=== PATIENT | female | born 1945 | race Caucasian/White ===

== ENCOUNTER 2017-09-15 14:41 | Emergency (ER) | payer OTHER ==
[~2017-09-15] VITALS: Ht 162.6 cm; Wt 111.7 kg
[2017-09-15 14:41] VITALS: TEMP 36.8; Ht 162.6 cm; Wt 111.7 kg
[2017-09-15] MEDS ORDERED: ONDANSETRON INJ 2 MG/ML 2 ML VIAL IV STA (14:57)
--- NOTE | 2017-09-15 14:59 | EMERGENCY ROOM VISIT NOTE ---
History Report prepared by Samantha: Saul Barone Under the Supervision of: Dr. Huseyin Gerardo M.D. First contact with patient: 14:52 Stated Complaint: FALL History of Present Illness The patient is a 72 year old female who presents to the Emergency Room via EMS with complaints of a sudden mechanical fall that occurred around an hour and a half ago. She states that she fell backward off of a step stool, and fell to the ground. The patient notes that she has had persistent left knee and leg pain ever since the fall. She says that she was on ground "for a while" until she could pull herself onto her bed. The patient adds that she was unable to walk on the leg. She states that she felt like she twisted the leg, and perhaps fractured it. The patient says that she did not hit her head on the fall. The patient notes that she takes a baby Aspirin but no other blood thinners. Source of History: patient, nursing staff Onset: An hour and a half ago Position: other (global) Symptom Intensity: cannot walk since fall Quality: other (fall - mechanical) Timing: other (sudden) Note: Associated symptoms: Left leg and knee pain. Did not hit head on fall. Review of Systems See HPI for pertinent positives & negatives. A total of 10 systems reviewed and were otherwise negative. Past Medical & Surgical Medical Problems: (1) Diabetes Family History Cancer Diabetes mellitus Heart disease Social History Smoking Status: Former Smoker Alcohol Use: none Current/Historical Medications Scheduled Aspirin (Aspirin Ec), 81 MG PO DAILY Escitalopram Oxalate (Lexapro), 20 MG PO DAILY Metformin Hcl (Glucophage), 500 MG PO BID Phenytoin Sodium (Dilantin), 500 MG PO DAILY@1700 Simvastatin (Zocor), 10 MG PO QPM Allergies Coded Allergies: No Known Allergies (Unverified , 09/15/17) Physical Exam Vital Signs Date Time Temp Pulse Resp B/P (MAP) Pulse Ox O2 Delivery O2 Flow Rate FiO2 09/15/17 19:51 79 18 108/56 99 Nasal Cannula 2.0 09/15/17 18:36 97 Nasal Cannula 2.0 09/15/17 18:32 63 18 99/57 97 Nasal Cannula 2.0 09/15/17 17:05 75 18 123/57 96 Room Air 09/15/17 15:44 70 20 129/61 95 Room Air 09/15/17 14:41 36.8 81 24 149/72 98 Room Air Physical Exam GENERAL: Awake, alert, well-appearing, in no acute distress HENT: Normocephalic, atraumatic. Oropharynx unremarkable. EYES: Normal conjunctiva. Sclera non-icteric. NECK: Supple. No nuchal rigidity. FROM. No JVD. RESPIRATORY: Clear to auscultation. CARDIAC: Regular rate, normal rhythm. Extremities warm and well perfused. Pulses equal. ABDOMEN: Soft, non-distended. No tenderness to palpation. No rebound or guarding. No masses. RECTAL: Deferred. MUSCULOSKELETAL: Tender to the left hip. Chest examination reveals no tenderness. The back is symmetrical on inspection without obvious abnormality. There is no CVA tenderness to palpation. LOWER EXTREMITIES: Cannot bend the left knee. Neurovascularly intact at the foot. Calves are equal size bilaterally and non-tender. No discoloration. NEURO: Normal sensorium. SKIN: No rash or jaundice noted. Medical Decision & Procedures ER Provider Diagnostic Interpretation: Radiology results as stated below per my review and radiologist interpretation: L FEMUR 2 VIEWS ROUTINE, L TIBIA/FIBULA 2 VIEWS ROUTINE HISTORY: 72 years-old Female Pt c/o left hip pain acute left leg pain COMPARISON: None available TECHNIQUE: 2 views of the left femur with 2 views of the left tibia and fibula FINDINGS: FEMUR: The bones appear mildly demineralized. Moderate degenerative changes about the left femoral acetabular joint. The imaged left hemipelvis appears intact. The distal femur also appears intact without acute fracture identified. Moderate marginal spurring about the distal femur with moderate degenerative changes of the patellofemoral joint. Moderate sized knee joint effusion. Peripheral vascular disease. TIBIA/FIBULA: The bones appear mildly demineralized. There is an acute comminuted fracture involving the lateral tibial plateau with cortical depression of at least 9 mm and lateral displacement of 5 mm. There are additional suspected acute fracture extending into the medial and lateral tibial spines. Acute mildly impacted fracture of the proximal metaphyseal fibula seen best on the crosstable lateral view. Moderate soft tissue swelling about the knee. The distal tibia and fibula appear intact. Vascular calcifications are noted about the lower leg. IMPRESSION: 1. Acute comminuted fracture of the lateral tibial plateau with cortical depression and mild displacement. 2. Additional suspected acute fractures involve the medial and lateral tibial spines. 3. Acute mildly impacted fracture of the proximal metaphyseal fibula. 4. Osteopenic appearance of the bones. The above report was generated using voice recognition software. It may contain grammatical, syntax or spelling errors. Electronically signed by: Tom Olivas M.D. 09/15/2017 4:43 PM Dictated Date/Time: 09/15/2017 4:38 PM PELVIS 1 OR 2 VIEW ROUTINE HISTORY: 72 years-old Female Pt c/o left hip pain acute left-sided head pain with acute left tibial fracture. Status post fall. COMPARISON: Left femur and left tibia/fibula radiographs of same day TECHNIQUE: Single AP view of the pelvis FINDINGS: The bones appear mildly demineralized. Moderate general changes about the pubic symphysis and bilateral femoral acetabular joints. There is no acute fracture or dislocation. Sacrum appears intact. IMPRESSION: No acute fracture or dislocation. The above report was generated using voice recognition software. It may contain grammatical, syntax or spelling errors. Electronically signed by: Tom Olivas M.D. 09/15/2017 4:47 PM Dictated Date/Time: 09/15/2017 4:46 PM L FEMUR 2 VIEWS ROUTINE, L TIBIA/FIBULA 2 VIEWS ROUTINE HISTORY: 72 years-old Female Pt c/o left hip pain acute left leg pain COMPARISON: None available TECHNIQUE: 2 views of the left femur with 2 views of the left tibia and fibula FINDINGS: FEMUR: The bones appear mildly demineralized. Moderate degenerative changes about the left femoral acetabular joint. The imaged left hemipelvis appears intact. The distal femur also appears intact without acute fracture identified. Moderate marginal spurring about the distal femur with moderate degenerative changes of the patellofemoral joint. Moderate sized knee joint effusion. Peripheral vascular disease. TIBIA/FIBULA: The bones appear mildly demineralized. There is an acute comminuted fracture involving the lateral tibial plateau with cortical depression of at least 9 mm and lateral displacement of 5 mm. There are additional suspected acute fracture extending into the medial and lateral tibial spines. Acute mildly impacted fracture of the proximal metaphyseal fibula seen best on the crosstable lateral view. Moderate soft tissue swelling about the knee. The distal tibia and fibula appear intact. Vascular calcifications are noted about the lower leg. IMPRESSION: 1. Acute comminuted fracture of the lateral tibial plateau with cortical depression and mild displacement. 2. Additional suspected acute fractures involve the medial and lateral tibial spines. 3. Acute mildly impacted fracture of the proximal metaphyseal fibula. 4. Osteopenic appearance of the bones. The above report was generated using voice recognition software. It may contain grammatical, syntax or spelling errors. Electronically signed by: Tom Olivas M.D. 09/15/2017 4:43 PM Dictated Date/Time: 09/15/2017 4:38 PM CHEST ONE VIEW PORTABLE HISTORY: 72 years-old Female Pt c/o left hip pain acute left-sided head pain. Acute chest trauma status post fall COMPARISON: Shoulder radiographs 08/07/2009 TECHNIQUE: Portable AP view of the chest FINDINGS: Cardiac silhouette is upper limits of normal in size. There is no pneumothorax, pleural effusion, focal airspace consolidation or overt pulmonary edema. The bones of the chest appear grossly intact. Cholecystectomy clips noted. IMPRESSION: No acute process. The above report was generated using voice recognition software. It may contain grammatical, syntax or spelling errors. Electronically signed by: Tom Olivas M.D. 09/15/2017 4:51 PM Dictated Date/Time: 09/15/2017 4:[address] HEAD WITHOUT CONTRAST (CT) CLINICAL HISTORY: Severe headache. Neck pain. Trauma. COMPARISON STUDY: No previous studies for comparison. TECHNIQUE: Axial CT of the brain is performed from the vertex to the skull base. IV contrast was not administered for this examination. A dose lowering technique was utilized adhering to the principles of ALARA. CT DOSE: 1017.36 mGy.cm FINDINGS: No intra or extra-axial mass lesions are visualized. There is no CT evidence of acute cortical infarction. There is no evidence of midline shift. There is no acute hemorrhage. No calvarial fractures are visualized. There are patchy white matter hypodensities likely on a small vessel basis. There is no evidence of pathologic ventricular dilatation. There is no evidence of acute sinusitis IMPRESSION: No acute intracranial findings Electronically signed by: Davide De Jesus M.D. 09/15/2017 4:53 PM Dictated Date/Time: 09/15/2017 4:[address] OF THE CERVICAL SPINE CLINICAL HISTORY: Neck pain status post trauma COMPARISON STUDY: No previous studies for comparison. CT DOSE: TECHNIQUE: CT scan of the cervical spine was performed from the skull base to the thoracic inlet. Images are reviewed in the axial, sagittal, and coronal planes. IV contrast was not administered for this examination. A dose lowering technique was utilized adhering to the principles of ALARA. FINDINGS: The visualized portions of the lung apices reveal no evidence of pneumothorax. There are bilateral mastoid effusions left greater than right. There is a small amount of fluid within the left middle ear cavity. The prevertebral soft tissues are normal. No fractures or subluxations are visualized. There are multilevel degenerative changes, most pronounced at the C5-6 level. IMPRESSION: 1. No evidence of acute fracture or traumatic subluxation 2. Bilateral mastoid effusions left greater than right. Electronically signed by: Davide De Jesus M.D. 09/15/2017 4:57 PM Dictated Date/Time: 09/15/2017 4:[address] LEFT LOWER EXTREMITY NO CONTRAST CT DOSE: 684.15 mGy.cm CLINICAL HISTORY: Left hip and tibial plateau fractures. TECHNIQUE: Helical images were acquired in the transverse plane. Sagittal and coronal reformatted imaging was performed. A dose lowering technique was utilized adhering to the principles of ALARA. COMPARISON STUDY: Conventional radiographic images performed September 15, 2017 FINDINGS: No acute fractures of the femur are visualized. There are osteoarthritic changes present the level of the hip. There is a comminuted tibial plateau fracture involving the lateral tibial plateau. The fracture extends through the inferior aspect the tibial spines to involve the lateral aspect of the medial tibial plateau. Laterally there is 2 cm of maximal depression. There is associated fracture of the proximal fibula. There are osteoarthritic changes present within the knee. IMPRESSION: 1. No evidence of acute femoral fracture 2. Comminuted tibial plateau fracture involving both the medial and lateral tibial plateaus. There is 2 cm of maximal depression laterally. There is associated fracture of the proximal fibula. Electronically signed by: Davide De Jesus M.D. 09/15/2017 5:08 PM Dictated Date/Time: 09/15/2017 5:02 PM Laboratory Results 09/15/17 15:35 Red Blood Count 4.07, Mean Corpuscular Volume 88.0, Mean Corpuscular Hemoglobin 30.0, Mean Corpuscular Hemoglobin Concent 34.1, Mean Platelet Volume 9.0, Neutrophils (%) (Auto) 80.1, Lymphocytes (%) (Auto) 11.9, Monocytes (%) (Auto) 5.9, Eosinophils (%) (Auto) 1.3, Basophils (%) (Auto) 0.4, Neutrophils # (Auto) 9.50, Lymphocytes # (Auto) 1.41, Monocytes # (Auto) 0.70, Eosinophils # (Auto) 0.16, Basophils # (Auto) 0.05 09/15/17 15:35 Test 09/15/17 15:35 09/15/17 15:57 09/15/17 18:25 White Blood Count 11.87 K/uL (4.8-10.8) Red Blood Count 4.07 M/uL (4.2-5.4) Hemoglobin 12.2 g/dL (12.0-16.0) Hematocrit 35.8 % (37-47) Mean Corpuscular Volume 88.0 fL (80-100) Mean Corpuscular Hemoglobin 30.0 pg (25-34) Mean Corpuscular Hemoglobin Concent 34.1 g/dl (32-36) Platelet Count 235 K/uL (130-400) Mean Platelet Volume 9.0 fL (7.4-10.4) Neutrophils (%) (Auto) 80.1 % Lymphocytes (%) (Auto) 11.9 % Monocytes (%) (Auto) 5.9 % Eosinophils (%) (Auto) 1.3 % Basophils (%) (Auto) 0.4 % Neutrophils # (Auto) 9.50 K/uL (1.4-6.5) Lymphocytes # (Auto) 1.41 K/uL (1.2-3.4) Monocytes # (Auto) 0.70 K/uL (0.11-0.59) Eosinophils # (Auto) 0.16 K/uL (0-0.5) Basophils # (Auto) 0.05 K/uL (0-0.2) RDW Standard Deviation 44.8 fL (36.4-46.3) RDW Coefficient of Variation 13.9 % (11.5-14.5) Immature Granulocyte % (Auto) 0.4 % Immature Granulocyte # (Auto) 0.05 K/uL (0.00-0.02) Prothrombin Time 9.9 SECONDS (9.0-12.0) Prothromb Time International Ratio 0.9 (0.9-1.1) Activated Partial Thromboplast Time 23.4 SECONDS (21.0-31.0) Partial Thromboplastin Ratio 0.9 Anion Gap 5.0 mmol/L (3-11) Est Creatinine Clear Calc Drug Dose 68.4 ml/min Estimated GFR () 73.1 Estimated GFR (Non- 63.0 BUN/Creatinine Ratio 17.8 (10-20) Calcium Level 8.6 mg/dl (8.5-10.1) Urine Color YELLOW Urine Appearance CLEAR (CLEAR) Urine pH 5.5 (4.5-7.5) Urine Specific [place] 1.015 (1.000-1.030) Urine Protein NEG (NEG) Urine Glucose (UA) NEG (NEG) Urine Ketones NEG (NEG) Urine Occult Blood NEG (NEG) Urine Nitrite NEG (NEG) Urine Bilirubin NEG (NEG) Urine Urobilinogen NEG (NEG) Urine Leukocyte Esterase NEG (NEG) Phenytoin (Dilantin) Level 11.2 mcg/mL (10-20) Labs reviewed by ED physician. Medications Administered Medications (Trade) Dose Ordered Sig/Karime Route Start Time Stop Time Status Last Admin Dose Admin Hydromorphone HCl (Dilaudid Inj) 0.5 mg Q20M PRN IV 09/15/17 15:00 09/29/17 14:59 09/15/17 15:35 0.5 MG Ondansetron HCl (Zofran Inj) 4 mg NOW STAT IV 09/15/17 14:57 09/15/17 15:10 DC 09/15/17 15:35 4 MG Hydromorphone HCl (Dilaudid Inj) 0.5 mg NOW STAT IV 09/15/17 16:56 09/15/17 16:57 DC 09/15/17 17:01 0.5 MG Hydromorphone HCl (Dilaudid Inj) 0.5 mg NOW STAT IV 09/15/17 17:54 09/15/17 17:55 DC 09/15/17 18:31 0.5 MG Phenytoin Sodium (Dilantin Er Cap) 500 mg NOW STAT PO 09/15/17 18:17 09/15/17 18:19 DC 09/15/17 18:32 500 MG ECG Per My Interpretation Indication: other (trauma) Rate (beats per minute): 69 Rhythm: normal sinus Findings: other (no ST elevation or depression) ED Course 1453: Past medical records reviewed. The patient was evaluated in room C6. A complete history and physical examination was performed. 1457: Zofran Inj 4 mg IV. 1500: Dilaudid Inj 0.5 mg IV PRN. 1518: I reevaluated the patient and she is doing better. 1601: I reevaluated and updated the patient. 1640: I reevaluated the patient and updated her family. 1655: I reevaluated the patient and she wants more pain medication. 1656: Dilaudid Inj 0.5 mg IV. 1711: I discussed the patient with Dr. Zaragoza of orthopedics - he says that the patient needs to be transferred to a trauma center. 1721: I reevaluated the patient and updated her. She is resting. I told the patient that she needs to be transferred to a trauma center. She is agreeable with this plan. 1730: I discussed the patient with Dr. Fontanez - [facility] ED - he has accepted the patient in transfer. Medical Decision Differential diagnosis: Etiologies such as fracture, dislocation, neurovascular compromise, compartment syndrome, soft tissue injury, as well as others were entertained. This is a 72-year-old female who presents emergency department complaining of leg pain after a fall. The patient is unable to move her left leg due to the pain. Ice packs were placed on the patient's knee and she was sent for x-rays along with a CAT scan of the head and C-spine. While in x-ray there is concern that the patient had a hip fracture as well as a tibial plateau fracture therefore a CT of the lower extremity was added. The patient received an IV was given Dilaudid along with a normal saline bolus. She was given her normal seizure medication which she normally takes at 5:00. She was also given Zofran. The patient's CAT scan is concerning for a 2 cm tibial plateau fracture. I did discuss the case with Dr. Zaragoza the on-call orthopedic surgeon who felt that the patient will be better served at the trauma center. I did discuss this with the patient's family. The patient has a [facility] doctor and would like to go to [place]. I did discuss the case with the emergency department who readily accepted the patient. Patient and family were in agreement with the treatment plan. Medication Reconcilliation Current Medication List: was personally reviewed by me Blood Pressure Screening Patient's blood pressure: Elevated blood pressure Blood pressure disposition: Elevated BP felt to be situational Consults Time Called: 1707 Consulting Physician: Dr. Zaragoza of orthopedics Returned Call: 1711 I discussed the patient with Dr. Zaragoza of orthopedics - he says that the patient needs to be transferred to a trauma center. Additional Consults: Time Called: 1720 Consulted Physician: Dr. Huseyin Hackett [facility] ED Returned Call: 1730 Additional Comments: I discussed the patient with Dr. Fontanez - [facility] [place] [facility] - he has accepted the patient in transfer. Impression Primary Impression: Fall Additional Impression: Tibial plateau fracture Scribe Attestation The scribe's documentation has been prepared under my direction and personally reviewed by me in its entirety. I confirm that the note above accurately reflects all work, treatment, procedures, and medical decision making performed by me. Departure Information Dispostion Transfer Acute Care Facility (to [facility]) Referrals Svetlana Brown D.O. (PCP) Problem Qualifiers Primary Impression: Fall Encounter type: initial encounter Qualified Codes: W19.XXXA - Unspecified fall, initial encounter Additional Impression: Tibial plateau fracture Encounter type: initial encounter Fracture type: closed Laterality: left Qualified Codes: S82.142A - Displaced bicondylar fracture of left tibia, initial encounter for closed fracture
[2017-09-15] MEDS ORDERED: HYDROmorphone INJ 0.5 MG/0.5 ML SYR IV PRN (15:00)
[2017-09-15 15:44] LABS: BASO % 0.4 %; BASO ABS # 0.05 K/uL (0-0.2); EOS % 1.3 %; EOS ABS # 0.16 K/uL (0-0.5); HEMATOCRIT 35.8 % (37-47); HEMOGLOBIN 12.2 g/dL (12.0-16.0); IG# 0.05 K/uL (0.00-0.02); LYMPH % 11.9 %; LYMPH ABS # 1.41 K/uL (1.2-3.4); MEAN CORPUSCULAR HGB CONC 34.1 g/dl (32-36); MONO % 5.9 %; NEUT % 80.1 %; PLATELET COUNT 235 K/uL (130-400); RED CELL DISTRIBUTION WIDTH CV 13.9 % (11.5-14.5); RED CELL DISTRIBUTION WIDTH SD 44.8 fL (36.4-46.3); WHITE BLOOD COUNT 11.87 K/uL (4.8-10.8)
[2017-09-15 15:52] LABS: INR 0.9 (0.9-1.1); PTT PATIENT 23.4 SECONDS (21.0-31.0)
[2017-09-15 16:01] LABS: CALCIUM 8.6 mg/dl (8.5-10.1); CREATININE 0.91 mg/dl (0.60-1.20); POTASSIUM 3.7 mmol/L (3.5-5.1)
--- NOTE | 2017-09-15 16:44 | DIAGNOSTIC IMAGING REPORT ---
L FEMUR 2 VIEWS ROUTINE, L TIBIA/FIBULA 2 VIEWS ROUTINE HISTORY: 72 years-old Female Pt c/o left hip pain acute left leg pain COMPARISON: None available TECHNIQUE: 2 views of the left femur with 2 views of the left tibia and fibula FINDINGS: FEMUR: The bones appear mildly demineralized. Moderate degenerative changes about the left femoral acetabular joint. The imaged left hemipelvis appears intact. The distal femur also appears intact without acute fracture identified. Moderate marginal spurring about the distal femur with moderate degenerative changes of the patellofemoral joint. Moderate sized knee joint effusion. Peripheral vascular disease. TIBIA/FIBULA: The bones appear mildly demineralized. There is an acute comminuted fracture involving the lateral tibial plateau with cortical depression of at least 9 mm and lateral displacement of 5 mm. There are additional suspected acute fracture extending into the medial and lateral tibial spines. Acute mildly impacted fracture of the proximal metaphyseal fibula seen best on the crosstable lateral view. Moderate soft tissue swelling about the knee. The distal tibia and fibula appear intact. Vascular calcifications are noted about the lower leg. IMPRESSION: 1. Acute comminuted fracture of the lateral tibial plateau with cortical depression and mild displacement. 2. Additional suspected acute fractures involve the medial and lateral tibial spines. 3. Acute mildly impacted fracture of the proximal metaphyseal fibula. 4. Osteopenic appearance of the bones. The above report was generated using voice recognition software. It may contain grammatical, syntax or spelling errors. Electronically signed by: Tom Olivas M.D. 09/15/2017 4:43 PM Dictated Date/Time: 09/15/2017 4:38 PM
--- NOTE | 2017-09-15 16:48 | DIAGNOSTIC IMAGING REPORT ---
PELVIS 1 OR 2 VIEW ROUTINE HISTORY: 72 years-old Female Pt c/o left hip pain acute left-sided head pain with acute left tibial fracture. Status post fall. COMPARISON: Left femur and left tibia/fibula radiographs of same day TECHNIQUE: Single AP view of the pelvis FINDINGS: The bones appear mildly demineralized. Moderate general changes about the pubic symphysis and bilateral femoral acetabular joints. There is no acute fracture or dislocation. Sacrum appears intact. IMPRESSION: No acute fracture or dislocation. The above report was generated using voice recognition software. It may contain grammatical, syntax or spelling errors. Electronically signed by: Tom Olivas M.D. 09/15/2017 4:47 PM Dictated Date/Time: 09/15/2017 4:46 PM
--- NOTE | 2017-09-15 16:52 | DIAGNOSTIC IMAGING REPORT ---
CHEST ONE VIEW PORTABLE HISTORY: 72 years-old Female Pt c/o left hip pain acute left-sided head pain. Acute chest trauma status post fall COMPARISON: Shoulder radiographs 08/07/2009 TECHNIQUE: Portable AP view of the chest FINDINGS: Cardiac silhouette is upper limits of normal in size. There is no pneumothorax, pleural effusion, focal airspace consolidation or overt pulmonary edema. The bones of the chest appear grossly intact. Cholecystectomy clips noted. IMPRESSION: No acute process. The above report was generated using voice recognition software. It may contain grammatical, syntax or spelling errors. Electronically signed by: Tom Olivas M.D. 09/15/2017 4:51 PM Dictated Date/Time: 09/15/2017 4:48 PM
--- NOTE | 2017-09-15 16:54 | DIAGNOSTIC IMAGING REPORT ---
CT HEAD WITHOUT CONTRAST (CT) CLINICAL HISTORY: Severe headache. Neck pain. Trauma. COMPARISON STUDY: No previous studies for comparison. TECHNIQUE: Axial CT of the brain is performed from the vertex to the skull base. IV contrast was not administered for this examination. A dose lowering technique was utilized adhering to the principles of ALARA. CT DOSE: 1017.36 mGy.cm FINDINGS: No intra or extra-axial mass lesions are visualized. There is no CT evidence of acute cortical infarction. There is no evidence of midline shift. There is no acute hemorrhage. No calvarial fractures are visualized. There are patchy white matter hypodensities likely on a small vessel basis. There is no evidence of pathologic ventricular dilatation. There is no evidence of acute sinusitis IMPRESSION: No acute intracranial findings Electronically signed by: Davide De Jesus M.D. 09/15/2017 4:53 PM Dictated Date/Time: 09/15/2017 4:52 PM
[2017-09-15] MEDS ORDERED: HYDROmorphone INJ 0.5 MG/0.5 ML SYR IV STA ×2 (16:56→17:54)
--- NOTE | 2017-09-15 16:58 | DIAGNOSTIC IMAGING REPORT ---
CT OF THE CERVICAL SPINE CLINICAL HISTORY: Neck pain status post trauma COMPARISON STUDY: No previous studies for comparison. CT DOSE: TECHNIQUE: CT scan of the cervical spine was performed from the skull base to the thoracic inlet. Images are reviewed in the axial, sagittal, and coronal planes. IV contrast was not administered for this examination. A dose lowering technique was utilized adhering to the principles of ALARA. FINDINGS: The visualized portions of the lung apices reveal no evidence of pneumothorax. There are bilateral mastoid effusions left greater than right. There is a small amount of fluid within the left middle ear cavity. The prevertebral soft tissues are normal. No fractures or subluxations are visualized. There are multilevel degenerative changes, most pronounced at the C5-6 level. IMPRESSION: 1. No evidence of acute fracture or traumatic subluxation 2. Bilateral mastoid effusions left greater than right. Electronically signed by: Davide De Jesus M.D. 09/15/2017 4:57 PM Dictated Date/Time: 09/15/2017 4:53 PM
[2017-09-15] MEDS ORDERED: GLC/500 PO (17:04)
[2017-09-15] MEDS ORDERED: DLN100 PO (17:04)
[2017-09-15] MEDS ORDERED: ASPI81TA28 PO (17:04)
[2017-09-15] MEDS ORDERED: ESCI1TAB10 PO (17:04)
[2017-09-15] MEDS ORDERED: SIMV10TA2 PO (17:04)
--- NOTE | 2017-09-15 17:10 | DIAGNOSTIC IMAGING REPORT ---
CT LEFT LOWER EXTREMITY NO CONTRAST CT DOSE: 684.15 mGy.cm CLINICAL HISTORY: Left hip and tibial plateau fractures. TECHNIQUE: Helical images were acquired in the transverse plane. Sagittal and coronal reformatted imaging was performed. A dose lowering technique was utilized adhering to the principles of ALARA. COMPARISON STUDY: Conventional radiographic images performed September 15, 2017 FINDINGS: No acute fractures of the femur are visualized. There are osteoarthritic changes present the level of the hip. There is a comminuted tibial plateau fracture involving the lateral tibial plateau. The fracture extends through the inferior aspect the tibial spines to involve the lateral aspect of the medial tibial plateau. Laterally there is 2 cm of maximal depression. There is associated fracture of the proximal fibula. There are osteoarthritic changes present within the knee. IMPRESSION: 1. No evidence of acute femoral fracture 2. Comminuted tibial plateau fracture involving both the medial and lateral tibial plateaus. There is 2 cm of maximal depression laterally. There is associated fracture of the proximal fibula. Electronically signed by: Davide De Jesus M.D. 09/15/2017 5:08 PM Dictated Date/Time: 09/15/2017 5:02 PM
[2017-09-15] MEDS ORDERED: PHENYTOIN SODIUM ER 100 MG CAP PO STA (18:17)
[2017-09-15 18:36] VITALS: O2SAT 97
[2017-09-15 19:51] VITALS: BP 108/56; PULSE 79; O2SAT 99
== END 2017-09-15 20:19 | disposition short-term general hospital (02) ==
LOC: EDBD 14:41 → C.EDC 14:42
DX: S82.142A Displaced bicondylar fracture of left tibia, initial encounter for closed fracture (principal); W19.XXXA Unspecified fall, initial encounter; E11.9 Type 2 diabetes mellitus without complications